=== PATIENT | female | born 2000 | race Caucasian/White ===

== ENCOUNTER 2022-06-23 07:30 | Inpatient (IN) | payer OTHER ==
[~2022-06-23 07:30] MED LIST: DEXTROSE 5%-LACTATED RINGERS 1,000 ML IV SCH
[2022-06-23] MEDS ORDERED: SODIUM CHLORIDE 100 ML IVPB ONE ×2 (08:20→12:51)
[2022-06-23] MEDS ORDERED: AMPICILLIN SODIUM 2 GM VIAL ONE (08:20)
[2022-06-23] MEDS ORDERED: AMPICILLIN - 2 GM in SODIUM CHLORIDE 100 ML IVPB ONE (08:30)
[2022-06-23] MEDS ORDERED: PROMETHAZINE HCL 25 MG/1 ML VIAL ONE (09:12)
[2022-06-23] MEDS ORDERED: BUTORPHANOL TARTRATE 2 MG/ML VIAL ONE (09:12)
[2022-06-23 09:21] LABS: BASO % 0.1 % (0-2.0); EOS % 0.6 % (0-4.5); HEMATOCRIT 34.4 % (32.4-45.2); HEMOGLOBIN 11.5 GM/dL (10.7-15.3); LYMPH % 27.3 % (8-40); MCH 30.6 pg (25.7-33.7); MCHC 33.5 g/dl (32.0-36.0); MEAN CELL VOLUME 91.3 fl (80-96); MEAN PLT VOLUME 7.2 fl (7.5-11.1); MONO % 7.4 % (3.8-10.2); NEUT % 64.6 % (42.8-82.8); PLATELET COUNT 237 10^3/uL (134-434); RBC 3.76 M/mm3 (3.60-5.2); RDW 14.5 % (11.6-15.6); WHITE BLOOD COUNT 4.8 K/mm3 (4.0-10.0)
[2022-06-23 09:26] LABS: INR 0.98 (0.83-1.09); PROTHROMBIN TIME (PATIENT) 11.3 SEC (9.7-13.0)
[2022-06-23 09:29] LABS: ACTIVATED PTT 27.8 SECONDS (25.2-36.5)
[2022-06-23 09:33] LABS: CALCIUM 8.5 mg/dL (8.5-10.1)
[2022-06-23 09:34] LABS: BLOOD UREA NITROGEN 5.8 mg/dL (7-18)
[2022-06-23 09:37] LABS: CREATININE 0.5 mg/dL (0.55-1.3)
[2022-06-23 09:43] VITALS: BMI 27.6
[2022-06-23] MEDS ORDERED: FENTANYL/BUPIVACAINE/NS/PF - PCEA - 50 ML DISP.SYRIN EP ONE (11:37)
[2022-06-23] MEDS: ELECTROLYTE-148 SOLN 1,000 ML IV SCH ×2 (11:45→12:58)
[2022-06-23] MEDS ORDERED: NALOXONE HCL 0.4 MG/ML VIAL IVPUSH PRN (12:18)
[2022-06-23] MEDS ORDERED: FENTANYL/BUPIVACAINE/NS/PF - PCEA - 50 ML DISP.SYRIN EP SCH (12:30)
[2022-06-23] MEDS ORDERED: OXYTOCIN 20 UNITS in 0.9% NS 20 UNIT/1,000 ML INFUS.BAG IV ONE (12:48)
[2022-06-23] MEDS ORDERED: AMPICILLIN SODIUM 1 GM VIAL ONE (12:51)
[2022-06-23] MEDS: AMPICILLIN - 1 GM in SODIUM CHLORIDE 100 ML IVPB SCH ×2 (12:56→23:49)
[2022-06-23] MEDS ORDERED: BUTORPHANOL TARTRATE 1 MG/ML VIAL IVPUSH ONE (13:19)
[2022-06-23] MEDS ORDERED: PROMETHAZINE HCL 25 MG/1 ML VIAL IVPUSH ONE (13:20)
[2022-06-23] MEDS ORDERED: METHYLERGONOVINE MALEATE 0.2 MG/1 ML AMP IM PRN (16:30)
[2022-06-23] MEDS ORDERED: IBUPROFEN 600 MG TABLET (FP) PO PRN (16:30)
[2022-06-23] MEDS ORDERED: OXYTOCIN 20 UNITS in 0.9% NS 20 UNIT/1,000 ML INFUS.BAG IV SCH (16:30)
[2022-06-23] MEDS ORDERED: oxyCODONE HCL 5 MG TABLET PO PRN (16:30)
[2022-06-23] MEDS ORDERED: BENZOCAINE 28 GM HEMORRHOIDAL OINTMENT TP PRN (16:30)
[2022-06-23] MEDS ORDERED: BENZOCAINE 20% 57 GM BOTTLE TP PRN (16:30)
[2022-06-23] MEDS ORDERED: BISACODYL 10 MG SUPP.RECT RC PRN (16:30)
[2022-06-23] MEDS ORDERED: ACETAMINOPHEN 325 MG TABLET (FP) PO PRN (16:30)
[2022-06-23] MEDS ORDERED: WITCH HAZEL 50% (TUCKS) 40 PAD/JAR PAD TP PRN (16:30)
[2022-06-24 09:03] LABS: BASO % 0.1 % (0-2.0); EOS % 0.2 % (0-4.5); HEMATOCRIT 30.9 % (32.4-45.2); HEMOGLOBIN 10.2 GM/dL (10.7-15.3); LYMPH % 15.9 % (8-40); MCH 30.4 pg (25.7-33.7); MEAN CELL VOLUME 92.2 fl (80-96); MEAN PLT VOLUME 7.6 fl (7.5-11.1); NEUT % 76.8 % (42.8-82.8); PLATELET COUNT 231 10^3/uL (134-434); RBC 3.35 M/mm3 (3.60-5.2); RDW 14.5 % (11.6-15.6)
[2022-06-24] MEDS ORDERED: SENNOSIDES/DOCUSATE COMBO (SENNA PLUS) TABLET (UD) PO PRN (22:00)
[2022-06-25 16:57] VITALS: BP 117/77; PULSE 69; RESP 18; TEMP 97.5
== END 2022-06-25 14:38 | disposition home or self-care (01) | DRG 560 ==
LOC: JLDR 07:30 → J3W 18:30
PROVIDERS: ADMIT Family Medicine; ATTEND Family Medicine
PROC: 10E0XZZ Delivery of Products of Conception, External Approach (ICD-10-PCS; principal; 2022-06-23)
PROC: 0HQ9XZZ Repair Perineum Skin, External Approach (ICD-10-PCS; 2022-06-23)
DX: O48.0 Post-term pregnancy (principal); O99.824 Streptococcus B carrier state complicating childbirth; O69.81X0 Labor and delivery complicated by cord around neck, without compression, not applicable or unspecified; O70.0 First degree perineal laceration during delivery; Z3A.40 40 weeks gestation of pregnancy; Z37.0 Single live birth
CPT/HCPCS: 36415; 59409; 80048; 85025; 85610; 85730; 86780; 86850; 86900; 86901; C9803-CS; U0003; U0005

== ENCOUNTER 2024-04-09 08:35 | Inpatient (IN) | payer OTHER ==
[2024-04-09] MEDS: ELECTROLYTE-148 SOLN 1,000 ML IV SCH (11:05)
[2024-04-09 11:19] VITALS: BMI 27.6
[2024-04-09 12:00] LABS: BASO % 0.1 % (0-2.0); EOS % 0.5 % (0-4.5); HEMATOCRIT 35.4 % (32.4-45.2); HEMOGLOBIN 11.6 GM/dL (10.7-15.3); LYMPH % 24.6 % (8-40); MCH 31.1 pg (25.7-33.7); MCHC 32.9 g/dl (32.0-36.0); MEAN CELL VOLUME 94.6 fl (80-96); MEAN PLT VOLUME 7.4 fl (7.5-11.1); NEUT % 68.8 % (42.8-82.8); PLATELET COUNT 225 10^3/uL (134-434); RBC 3.74 M/mm3 (3.60-5.2); RDW 14.4 % (11.6-15.6); WHITE BLOOD COUNT 5.2 K/mm3 (4.0-10.0)
[2024-04-09 12:06] LABS: INR 0.97 (0.83-1.09)
[2024-04-09 12:09] LABS: ACTIVATED PTT 30.5 SECONDS (25.2-36.5)
[2024-04-09 12:20] LABS: POTASSIUM 3.8 mmol/L (3.5-5.1)
[2024-04-09 12:21] LABS: CALCIUM 8.6 mg/dL (8.5-10.1)
[2024-04-09 12:22] LABS: BLOOD UREA NITROGEN 7.4 mg/dL (7-18)
[2024-04-09 12:25] LABS: CREATININE 0.4 mg/dL (0.55-1.3)
[2024-04-09 13:15] LABS: HIV INTERPRETATION NEGATIVE (NEGATIVE)
[2024-04-09] MEDS ORDERED: FENTANYL/BUPIVACAINE/NS/PF - PCEA - 50 ML DISP.SYRIN EP ONE ×2 (13:33→17:11)
[2024-04-09] MEDS: FENTANYL/BUPIVACAINE/NS/PF - PCEA - 50 ML DISP.SYRIN EP SCH ×2 (14:00→18:43)
[2024-04-09] MEDS ORDERED: NALOXONE HCL 0.4 MG/ML VIAL IVPUSH PRN (14:54)
[2024-04-09] MEDS ORDERED: OXYTOCIN 20 UNITS in 0.9% NS 20 UNIT/1,000 ML INFUS.BAG IV ONE (17:28)
[2024-04-09] MEDS ORDERED: ACETAMINOPHEN 325 MG TABLET (FP) PO PRN (18:13)
[2024-04-09] MEDS ORDERED: WITCH HAZEL 50% (TUCKS) 40 PAD/JAR PAD TP PRN (18:13)
[2024-04-09] MEDS ORDERED: BISACODYL 10 MG SUPP.RECT RC PRN (18:13)
[2024-04-09] MEDS ORDERED: oxyCODONE HCL 5 MG TABLET PO PRN (18:13)
[2024-04-09] MEDS ORDERED: METHYLERGONOVINE MALEATE 0.2 MG/1 ML AMP IM PRN (18:13)
[2024-04-09] MEDS ORDERED: BENZOCAINE 28 GM HEMORRHOIDAL OINTMENT TP PRN (18:13)
[2024-04-09] MEDS ORDERED: BENZOCAINE 20% 57 GM BOTTLE TP PRN (18:13)
[2024-04-09 18:36] LABS: CORD BASE EXCESS -2.7 mmol/L (0-2); CORD HCO3 22.8 mmHg (20-29); CORD PCO2 42.7 mmHg (30-78); CORD pH 7.346 (7.14-7.44)
[2024-04-09] MEDS: OXYTOCIN 20 UNITS in 0.9% NS 20 UNIT/1,000 ML INFUS.BAG IV SCH (18:50)
[2024-04-09] MEDS ORDERED: IBUPROFEN 600 MG TABLET (FP) PO ONE (19:06)
[2024-04-09] MEDS: IBUPROFEN 600 MG TABLET (FP) PO PRN (19:14)
[2024-04-10 09:21] LABS: BASO % 0.2 % (0-2.0); EOS % 0.7 % (0-4.5); HEMATOCRIT 33.9 % (32.4-45.2); HEMOGLOBIN 11.6 GM/dL (10.7-15.3); LYMPH % 16.7 % (8-40); MCH 32.2 pg (25.7-33.7); MCHC 34.3 g/dl (32.0-36.0); MEAN CELL VOLUME 94.1 fl (80-96); MEAN PLT VOLUME 7.1 fl (7.5-11.1); MONO % 5.5 % (3.8-10.2); NEUT % 76.9 % (42.8-82.8); PLATELET COUNT 193 10^3/uL (134-434); RDW 14.3 % (11.6-15.6); WHITE BLOOD COUNT 8.3 K/mm3 (4.0-10.0)
[2024-04-10 17:58] VITALS: RESP 18
[2024-04-10] MEDS ORDERED: SENNOSIDES/DOCUSATE COMBO (SENNA PLUS) TABLET (UD) PO PRN (22:00)
[2024-04-11 11:00] VITALS: BP 116/77; PULSE 73; TEMP 98.1
== END 2024-04-11 14:50 | disposition home or self-care (01) | DRG 560 ==
LOC: JDEL 08:35 → JLDR 10:35 → J3W 21:06
PROVIDERS: ADMIT Family Medicine; ATTEND Family Medicine
PROC: 10E0XZZ Delivery of Products of Conception, External Approach (ICD-10-PCS; principal; 2024-04-09)
DX: O48.0 Post-term pregnancy (principal); Z3A.40 40 weeks gestation of pregnancy; Z37.0 Single live birth
CPT/HCPCS: 36415; 36600; 80048; 82803; 85025; 85610; 85730; 86780; 86803; 86850; 86900; 86901; 87340; 87389